=== PATIENT | female | born 1965 | race Caucasian/White ===

== ENCOUNTER 2018-02-03 13:04 | Inpatient (IN) ==
[2018-02-03 13:35] LABS: Basophils % 0.2 % (0.0-0.8); Eosinophils # 0.1 10*3/uL (0.0-0.87); Eosinophils % 1.4 % (0.00-10.9); Hematocrit 39.7 VOL% (35.7-47.0); Hemoglobin 13.5 GM/DL (12.0-16.0); Immature Granulocytes % 0.2 %; Immature Granulocytes Absolute 0.02 #; Lymphocytes # 2.1 10*3/uL (1.4-4.0); Lymphocytes % 24.4 % (21.3-54.2); Mean Corpuscular Hemoglobin 30 PG (27-34); Mean Corpuscular Volume 87.3 FL (87-102); Mean Platelet Volume 10.8 FL (9.6-12.0); Monocytes # 0.6 10*3/uL (0.11-0.8); Monocytes % 6.7 % (1.7-12.7); Neutrophils # 5.7 10*3/uL (1.4-7.4); Neutrophils % 67.1 % (38.7-73.9); Platelet Count 316 T/CUMM (130-400); Red Blood Count 4.55 MC/CUMM (3.8-5.5); Red Cell Distribution Width 12.5 % (9.3-17.3); White Blood Count 8.5 T/CUMM (4-12)
[2018-02-03 13:59] LABS: Alanine Aminotransferase 18 U/L (13-56); Albumin 4.2 G/DL (3.4-5.0); Alkaline Phosphatase 83 U/L (45-117); Aspartate Amino Transferase 17 U/L (0-37); Bilirubin,Total < 0.39 MG/DL (0.2-1.0); Blood Urea Nitrogen 9 MG/DL (7-18); Calcium 8.9 MG/DL (8.5-10.1); Glucose 86 MG/DL (74-106); Osmolality,Calculated 272.7 MOS/KG (273-304); Sodium 138 MMOL/L (136-145); Total Protein 7.3 G/DL (6.4-8.3)
[2018-02-03] MEDS ORDERED: DILTIAZEM 50 MG/10 ML VIAL IV STA (15:16)
[2018-02-03 15:41] LABS: Free T4 (Free Thyroxine) 0.77 NG/DL (0.76-1.46); Thyroid Stimulating Hormone 4.74 uIU/ml (0.358-3.74)
[2018-02-03] MEDS ORDERED: guaiFENesin/DM ER 600-30 MG TABLET PO PRN (16:13)
[2018-02-03] MEDS ORDERED: diphenhydrAMINE CAP 25 MG CAPSULE PO PRN (16:13)
[2018-02-03] MEDS ORDERED: POTASSIUM CHLORIDE 20 MEQ TABLET PO PRN (16:13)
[2018-02-03] MEDS ORDERED: BISACODYL 5 MG TABLET PO PRN (16:13)
[2018-02-03] MEDS ORDERED: ONDANSETRON 4 MG/2 ML VIAL IV PRN (16:13)
[2018-02-03] MEDS ORDERED: DOCUSATE SODIUM 100 MG CAPSULE PO PRN (16:13)
[2018-02-03] MEDS ORDERED: MAGNESIUM SULF RIDER 2 GM in PREMIX 1 EACH IV PRN (16:13)
[2018-02-03] MEDS ORDERED: MAGNESIUM SULF RIDER 4 GM in PREMIX 1 EACH IV PRN (16:13)
[2018-02-03] MEDS ORDERED: ACETAMINOPHEN 325 MG TABLET PO PRN (16:13)
[2018-02-03] MEDS ORDERED: KETOROLAC 30 MG/1 ML VIAL IV ONE (17:46)
[2018-02-03] MEDS ORDERED: PROMETHAZINE 25 MG/1 ML VIAL IM ONE (17:46)
[2018-02-03] MEDS: ENOXAPARIN 40 MG/0.4 ML SYRINGE SUBCUT SCH (19:30)
[2018-02-03 21:16] LABS: Troponin I < 0.015 NG/ML (0.00-0.045)
[2018-02-03] MEDS ORDERED: SODIUM CHLORIDE 0.9% 500 ML IV ONE (22:56)
[2018-02-03] MEDS ORDERED: KETOROLAC 30 MG/1 ML VIAL IV PRN (23:00)
[2018-02-03] MEDS: METOPROLOL TARTRATE 25 MG TABLET PO SCH (23:42)
[2018-02-03 23:53] LABS: Troponin I < 0.015 NG/ML (0.00-0.045)
[2018-02-04] MEDS: THYROID 60 MG TABLET PO SCH ×2 (00:29→21:45)
[2018-02-04] MEDS: SULFAMETHOX/TRIMETHOPRIM 800-160 MG TABLET PO SCH ×3 (00:30→21:45)
[2018-02-04] MEDS: MORPHINE ER 15 MG TABLET PO SCH ×3 (00:32→21:45)
[2018-02-04] MEDS: traZODone 50 MG TABLET PO SCH ×2 (00:33→21:45)
[2018-02-04 05:34] LABS: Basophils % 0.3 % (0.0-0.8); Eosinophils # 0.1 10*3/uL (0.0-0.87); Eosinophils % 1.9 % (0.00-10.9); Hematocrit 31.6 VOL% (35.7-47.0); Hemoglobin 10.5 GM/DL (12.0-16.0); Immature Granulocytes % 0.3 %; Immature Granulocytes Absolute 0.02 #; Lymphocytes # 1.3 10*3/uL (1.4-4.0); Mean Corpuscular HGB Conc 33.2 GM/DL (32-36); Mean Corpuscular Hemoglobin 29 PG (27-34); Mean Corpuscular Volume 88.5 FL (87-102); Mean Platelet Volume 11.1 FL (9.6-12.0); Monocytes # 0.5 10*3/uL (0.11-0.8); Monocytes % 7.8 % (1.7-12.7); Neutrophils # 4.5 10*3/uL (1.4-7.4); Neutrophils % 69.7 % (38.7-73.9); Platelet Count 226 T/CUMM (130-400); Red Blood Count 3.57 MC/CUMM (3.8-5.5); Red Cell Distribution Width 12.7 % (9.3-17.3); White Blood Count 6.5 T/CUMM (4-12)
[2018-02-04 05:55] LABS: Calcium 7.9 MG/DL (8.5-10.1); Osmolality,Calculated 274.5 MOS/KG (273-304); Risk Ratio 2.73; VLDL CHOLESTEROL 9.2 MG/DL
[2018-02-04] MEDS ORDERED: NON-FORMULARY MEDICATION (Hydrocodone/Ibuprofen [Hydrocodone-Ibuprofen 7.5-200] 1 EACH) PO PRN (09:00)
[2018-02-04] MEDS: METOPROLOL TARTRATE 25 MG TABLET PO SCH (10:04)
[2018-02-04] MEDS: PANTOPRAZOLE 40 MG TABLET PO SCH (10:05)
[2018-02-04] MEDS: DULoxetine 30 MG CAPSULE PO SCH (10:05)
[2018-02-04] MEDS: TOPIRAMATE 100 MG TABLET PO SCH (10:06)
[2018-02-04] MEDS: ASCORBIC ACID 500 MG TABLET PO SCH (10:06)
[2018-02-04] MEDS: CALCIUM (CARBONATE)/VITAMIN D 600 MG-400 UNIT TABLET PO SCH (10:06)
[2018-02-04 11:37] LABS: Apearance,Urine CLEAR (Clear); Bilirubin,Urine Negative (Negative); Blood, Urine Negative (Negative); Glucose,Urine (UA) Negative (Negative); Ketones,Urine 80 mg/dL (Negative); Mucus,Urine Occasional /LPF (Occasional); Nitrite,Urine Negative (Negative); Protein,Urine Negative; Squamous Epithelial Cell,Urine Occasional /HPF (0-10); Urine Color Straw (Yellow); Urine Specific Gravity 1.029 (1.001-1.035); Urine Urobilinogen < 2.0 EU/DL (0.2-1.0)
[2018-02-04] MEDS: MONTELUKAST 10 MG TABLET PO SCH (14:27)
[2018-02-04] MEDS: ENOXAPARIN 40 MG/0.4 ML SYRINGE SUBCUT SCH (16:11)
[2018-02-04] MEDS ORDERED: oxyCODONE/ACETAMINOPHEN 5-325 MG TABLET PO PRN (17:22)
[2018-02-04] MEDS ORDERED: PROPRANOLOL 10 MG TABLET PO SCH (21:00)
[2018-02-04] MEDS ORDERED: SODIUM CHLORIDE 0.9% 500 ML IV ONE (23:54)
[2018-02-05] MEDS: SODIUM CHLORIDE 0.45% 1,000 ML IV SCH ×6 (01:08→20:47)
[2018-02-05 01:17] LABS: Barbiturates Screen,Urine Negative (Negative); Benzodiazepines Screen,Urine Negative (Negative); Cannabinoid Screen,Urine Negative (Negative); Opiate Screen,Urine Positive (Negative); Phencyclidine Screen,Urine Negative (Negative)
[2018-02-05] MEDS ORDERED: SODIUM CHLORIDE 0.9% 500 ML IV ONE ×4 (01:18→13:11)
[2018-02-05 04:37] LABS: Basophils % 0.2 % (0.0-0.8); Eosinophils # 0.1 10*3/uL (0.0-0.87); Eosinophils % 2.9 % (0.00-10.9); Hematocrit 27.2 VOL% (35.7-47.0); Immature Granulocytes % 0.2 %; Immature Granulocytes Absolute 0.01 #; Lymphocytes # 1.6 10*3/uL (1.4-4.0); Lymphocytes % 38.7 % (21.3-54.2); Mean Corpuscular HGB Conc 33.1 GM/DL (32-36); Mean Corpuscular Hemoglobin 29 PG (27-34); Mean Corpuscular Volume 87.7 FL (87-102); Mean Platelet Volume 11.3 FL (9.6-12.0); Monocytes # 0.4 10*3/uL (0.11-0.8); Monocytes % 9.3 % (1.7-12.7); Neutrophils # 2.1 10*3/uL (1.4-7.4); Neutrophils % 48.7 % (38.7-73.9); Platelet Count 178 T/CUMM (130-400); Red Cell Distribution Width 13.2 % (9.3-17.3); White Blood Count 4.2 T/CUMM (4-12)
[2018-02-05 05:06] LABS: Calcium 7.6 MG/DL (8.5-10.1); Osmolality,Calculated 277.3 MOS/KG (273-304); Potassium 3.5 MMOL/L (3.5-5.1)
[2018-02-05 05:06] LABS: Calcium 7.6 MG/DL (8.5-10.1); Osmolality,Calculated 275.4 MOS/KG (273-304); Potassium 3.5 MMOL/L (3.5-5.1)
[2018-02-05] MEDS: DULoxetine 30 MG CAPSULE PO SCH (09:14)
[2018-02-05] MEDS: ASCORBIC ACID 500 MG TABLET PO SCH (09:14)
[2018-02-05] MEDS: CALCIUM (CARBONATE)/VITAMIN D 600 MG-400 UNIT TABLET PO SCH (09:15)
[2018-02-05] MEDS: TOPIRAMATE 100 MG TABLET PO SCH (09:15)
[2018-02-05] MEDS: PANTOPRAZOLE 40 MG TABLET PO SCH (09:15)
[2018-02-05] MEDS: SULFAMETHOX/TRIMETHOPRIM 800-160 MG TABLET PO SCH ×2 (09:15→20:45)
[2018-02-05] MEDS: MONTELUKAST 10 MG TABLET PO SCH (09:15)
[2018-02-05] MEDS: ENOXAPARIN 40 MG/0.4 ML SYRINGE SUBCUT SCH (16:50)
[2018-02-05] MEDS: THYROID 60 MG TABLET PO SCH (20:44)
[2018-02-05] MEDS: oxyCODONE/ACETAMINOPHEN 5-325 MG TABLET PO PRN (20:45)
[2018-02-05] MEDS: traZODone 50 MG TABLET PO SCH (20:46)
[2018-02-06] MEDS: SODIUM CHLORIDE 0.45% 1,000 ML IV SCH (03:28)
[2018-02-06 04:34] LABS: Basophils % 0.4 % (0.0-0.8); Eosinophils # 0.1 10*3/uL (0.0-0.87); Eosinophils % 2.4 % (0.00-10.9); Hematocrit 27.2 VOL% (35.7-47.0); Hemoglobin 9.2 GM/DL (12.0-16.0); Immature Granulocytes % 0.2 %; Immature Granulocytes Absolute 0.01 #; Lymphocytes # 1.4 10*3/uL (1.4-4.0); Lymphocytes % 26.7 % (21.3-54.2); Mean Corpuscular HGB Conc 33.8 GM/DL (32-36); Mean Corpuscular Hemoglobin 30 PG (27-34); Mean Platelet Volume 11.6 FL (9.6-12.0); Monocytes # 0.4 10*3/uL (0.11-0.8); Monocytes % 7.1 % (1.7-12.7); NRBC # 0.02 10*3/uL; Neutrophils # 3.2 10*3/uL (1.4-7.4); Neutrophils % 63.2 % (38.7-73.9); Platelet Count 171 T/CUMM (130-400); Red Blood Count 3.09 MC/CUMM (3.8-5.5); Red Cell Distribution Width 13.5 % (9.3-17.3); White Blood Count 5.1 T/CUMM (4-12)
[2018-02-06 04:52] LABS: Calcium 7.7 MG/DL (8.5-10.1); Osmolality,Calculated 280.1 MOS/KG (273-304); Potassium 3.4 MMOL/L (3.5-5.1)
[2018-02-06] MEDS: oxyCODONE/ACETAMINOPHEN 5-325 MG TABLET PO PRN (05:09)
[2018-02-06 07:46] VITALS: BP 103/58
[2018-02-06] MEDS: SULFAMETHOX/TRIMETHOPRIM 800-160 MG TABLET PO SCH (09:12)
[2018-02-06] MEDS: CALCIUM (CARBONATE)/VITAMIN D 600 MG-400 UNIT TABLET PO SCH (09:12)
[2018-02-06] MEDS: DULoxetine 30 MG CAPSULE PO SCH (09:13)
[2018-02-06] MEDS: PANTOPRAZOLE 40 MG TABLET PO SCH (09:13)
[2018-02-06] MEDS: MONTELUKAST 10 MG TABLET PO SCH (09:13)
[2018-02-06] MEDS: ASCORBIC ACID 500 MG TABLET PO SCH (09:14)
[2018-02-06] MEDS ORDERED: MORPHINE ER 15 MG TABLET PO SCH (09:36)
[2018-02-06] MEDS: TOPIRAMATE 100 MG TABLET PO SCH (10:12)
[2018-02-10 22:51] LABS: Normetanephrine, U 122 mcg/24 h; Total Metanephrines, U 169 mcg/24 h; Urine Volume 3950 mL
== END 2018-02-06 10:55 | disposition home or self-care (01) | DRG 310 ==
LOC: N.ED 13:04 → N.EDINP 13:04 → N.TELES 22:00
PROVIDERS: ADMIT Internal Medicine Interventional Cardiology; ATTEND Internal Medicine Interventional Cardiology

== ENCOUNTER 2018-09-16 00:44 | Inpatient (IN) ==
[2018-09-16] MEDS ORDERED: SODIUM CHLORIDE 0.9% 500 ML IV STA (01:26)
[2018-09-16] MEDS ORDERED: LORazepam 2 MG/1 ML VIAL IV STA (01:26)
[2018-09-16 01:33] LABS: Basophils % 0.3 % (0.0-0.8); Eosinophils # 0.1 10*3/uL (0.0-0.87); Eosinophils % 0.9 % (0.00-10.9); Hematocrit 36.6 VOL% (35.7-47.0); Hemoglobin 11.8 GM/DL (12.0-16.0); Immature Granulocytes % 0.6 %; Immature Granulocytes Absolute 0.08 #; Lymphocytes % 15.2 % (21.3-54.2); Mean Corpuscular HGB Conc 32.2 GM/DL (32-36); Mean Corpuscular Hemoglobin 29 PG (27-34); Mean Corpuscular Volume 88.8 FL (87-102); Mean Platelet Volume 10.8 FL (9.6-12.0); Monocytes % 7.4 % (1.7-12.7); Neutrophils # 9.9 10*3/uL (1.4-7.4); Neutrophils % 75.6 % (38.7-73.9); Platelet Count 292 T/CUMM (130-400); Red Blood Count 4.12 MC/CUMM (3.8-5.5); Red Cell Distribution Width 12.4 % (9.3-17.3); White Blood Count 13.1 T/CUMM (4-12)
[2018-09-16 01:45] LABS: INR 0.9; PT Patient Result 10.2 SECS
[2018-09-16 01:58] LABS: Alanine Aminotransferase 18 U/L (13-56); Albumin 4.1 G/DL (3.4-5.0); Alkaline Phosphatase 100 U/L (45-117); Aspartate Amino Transferase 20 U/L (0-37); Blood Urea Nitrogen 12 MG/DL (7-18); Calcium 8.8 MG/DL (8.5-10.1); Glucose 100 MG/DL (74-106); Osmolality,Calculated 280.3 MOS/KG (273-304); Potassium 3.6 MMOL/L (3.5-5.1); Sodium 141 MMOL/L (136-145); Total Protein 7.2 G/DL (6.4-8.3); Troponin I 0.016 NG/ML (0.00-0.045)
[2018-09-16] MEDS ORDERED: SODIUM CHLORIDE 0.9% 1,750 ML IV ONE (02:08)
[2018-09-16 02:20] LABS: Apearance,Urine CLEAR (Clear); Blood, Urine Negative (Negative); Glucose,Urine (UA) Negative (Negative); Hyaline Casts,Urine 4 /LPF (0-3); Ketones,Urine 5 mg/dL (Negative); Mucus,Urine Occasional /LPF (Occasional); Nitrite,Urine Negative (Negative); Protein,Urine Negative; RBC,Urine 2 /HPF (0-4); Squamous Epithelial Cell,Urine Occasional /HPF (0-10); Urine Color Amber (Yellow); Urine Specific Gravity 1.038 (1.001-1.035); Urine Urobilinogen < 2.0 EU/DL (0.2-1.0); WBC,Urine 1 /HPF (0-6)
[2018-09-16 02:22] LABS: Bilirubin,Urine Moderate mg/dL (Negative)
[2018-09-16 02:25] LABS: INR 0.9; PT Patient Result 10.1 SECS; Partial Thromboplastin Time 23.1 SECS (0-40)
[2018-09-16] MEDS ORDERED: SODIUM CHLORIDE 0.9% 1,000 ML IV SCH (02:30)
[2018-09-16 02:31] LABS: Barbiturates Screen,Urine Negative (Negative); Benzodiazepines Screen,Urine Negative (Negative); Cannabinoid Screen,Urine Negative (Negative); Opiate Screen,Urine Positive (Negative); Phencyclidine Screen,Urine Negative (Negative)
[2018-09-16] MEDS ORDERED: PIPERACILLIN/TAZOBACTAM 3,375 MG VIAL IV ONE (03:14)
[2018-09-16] MEDS ORDERED: SODIUM CHLORIDE 0.9% 100 ML IV ONE (03:14)
[2018-09-16] MEDS: PIPERACILLIN/TAZOBACTAM 3,375 MG in SODIUM CHLORIDE 0.9% 100 ML IV SCH ×3 (03:25→19:38)
[2018-09-16 03:37] LABS: ABG Base Excess -7.3 MMOL/L (-2.5-2.5); ABG HCO3 18.5 MMOL/L (20-26); ABG Oxygen Saturation 97.6 % (95-100); ABG PCO2 33.3 MM HG (35-48); ABG PH 7.334 (7.35-7.45); ABG PO2 99.8 MM HG (80-95); ABG TCO2 16.2 MMOL/L (23-27); Allen Test Positive; Pt O2 Delivery Device Room Air
[2018-09-16] MEDS ORDERED: ONDANSETRON 4 MG/2 ML VIAL IV PRN (04:56)
[2018-09-16 05:33] LABS: Basophils % 0.2 % (0.0-0.8); Eosinophils % 0.4 % (0.00-10.9); Hematocrit 29.1 VOL% (35.7-47.0); Hemoglobin 9.2 GM/DL (12.0-16.0); Immature Granulocytes % 0.4 %; Immature Granulocytes Absolute 0.03 #; Lymphocytes # 1.5 10*3/uL (1.4-4.0); Lymphocytes % 17.3 % (21.3-54.2); Mean Corpuscular HGB Conc 31.6 GM/DL (32-36); Mean Corpuscular Hemoglobin 29 PG (27-34); Mean Corpuscular Volume 91.2 FL (87-102); Monocytes # 0.6 10*3/uL (0.11-0.8); Monocytes % 7.6 % (1.7-12.7); Neutrophils # 6.2 10*3/uL (1.4-7.4); Neutrophils % 74.1 % (38.7-73.9); Platelet Count 215 T/CUMM (130-400); Red Blood Count 3.19 MC/CUMM (3.8-5.5); Red Cell Distribution Width 12.4 % (9.3-17.3); White Blood Count 8.4 T/CUMM (4-12)
[2018-09-16 05:33] LABS: Sedimentation Rate-Westergren 15 MM/HR (0-30)
[2018-09-16 05:59] LABS: Bilirubin,Total 0.7 MG/DL (0.2-1.0); Calcium 7.1 MG/DL (8.5-10.1); Osmolality,Calculated 286.7 MOS/KG (273-304); Potassium 4.1 MMOL/L (3.5-5.1); Total Protein 5.2 G/DL (6.4-8.3)
[2018-09-16 06:03] LABS: Acetaminophen 24.2 UG/ML (10-30); Salicylate < 2.8 MG/DL (2.8-20)
[2018-09-16] MEDS: SODIUM CHLORIDE 0.9% 1,000 ML IV SCH ×3 (06:29→23:53)
[2018-09-16 07:33] LABS: Troponin I 0.042 NG/ML (0.00-0.045)
[2018-09-16] MEDS: ENOXAPARIN 40 MG/0.4 ML SYRINGE SUBCUT SCH (09:09)
[2018-09-16 14:00] LABS: Troponin I 0.032 NG/ML (0.00-0.045)
[2018-09-17] MEDS: SODIUM CHLORIDE 0.9% 1,000 ML IV SCH ×2 (02:07→12:37)
[2018-09-17] MEDS: PIPERACILLIN/TAZOBACTAM 3,375 MG in SODIUM CHLORIDE 0.9% 100 ML IV SCH ×3 (05:49→21:43)
[2018-09-17 06:11] LABS: Basophils % 0.4 % (0.0-0.8); Eosinophils # 0.2 10*3/uL (0.0-0.87); Eosinophils % 3.6 % (0.00-10.9); Hematocrit 30.7 VOL% (35.7-47.0); Hemoglobin 9.7 GM/DL (12.0-16.0); Immature Granulocytes % 0.4 %; Immature Granulocytes Absolute 0.02 #; Lymphocytes # 1.9 10*3/uL (1.4-4.0); Mean Corpuscular HGB Conc 31.6 GM/DL (32-36); Mean Corpuscular Hemoglobin 29 PG (27-34); Mean Corpuscular Volume 90.3 FL (87-102); Mean Platelet Volume 10.9 FL (9.6-12.0); Monocytes # 0.4 10*3/uL (0.11-0.8); Monocytes % 7.2 % (1.7-12.7); Neutrophils # 2.5 10*3/uL (1.4-7.4); Neutrophils % 50.4 % (38.7-73.9); Platelet Count 195 T/CUMM (130-400); Red Cell Distribution Width 12.7 % (9.3-17.3)
[2018-09-17 06:26] LABS: PT Patient Result 10.8 SECS
[2018-09-17 06:32] LABS: Albumin 2.7 G/DL (3.4-5.0); Bilirubin,Total 0.7 MG/DL (0.2-1.0); Calcium 7.5 MG/DL (8.5-10.1); Osmolality,Calculated 278.1 MOS/KG (273-304); Potassium 3.5 MMOL/L (3.5-5.1); Troponin I 0.025 NG/ML (0.00-0.045)
[2018-09-17] MEDS: ENOXAPARIN 40 MG/0.4 ML SYRINGE SUBCUT SCH (08:26)
[2018-09-17] MEDS ORDERED: ASCORBIC ACID 500 MG TABLET PO SCH (16:52)
[2018-09-17] MEDS ORDERED: GABAPENTIN 100 MG CAPSULE PO SCH (16:52)
[2018-09-17] MEDS ORDERED: MONTELUKAST 10 MG TABLET PO SCH (16:52)
[2018-09-17] MEDS ORDERED: THYROID PORK PO SCH (16:52)
[2018-09-17] MEDS ORDERED: DULoxetine 30 MG CAPSULE PO SCH (16:52)
[2018-09-17] MEDS ORDERED: CALCIUM (CARBONATE)/VITAMIN D 600 MG-400 UNIT TABLET PO SCH (16:52)
[2018-09-17] MEDS: DULoxetine 30 MG CAPSULE PO SCH (18:25)
[2018-09-17] MEDS: GABAPENTIN 100 MG CAPSULE PO SCH (21:42)
[2018-09-18] MEDS: SODIUM CHLORIDE 0.9% 1,000 ML IV SCH (01:37)
[2018-09-18 05:25] LABS: Calcium 7.3 MG/DL (8.5-10.1); Potassium 3.4 MMOL/L (3.5-5.1)
[2018-09-18] MEDS: PIPERACILLIN/TAZOBACTAM 3,375 MG in SODIUM CHLORIDE 0.9% 100 ML IV SCH (06:29)
[2018-09-18] MEDS ORDERED: THYROID PORK PO SCH (06:30)
[2018-09-18] MEDS ORDERED: POTASSIUM CHLORIDE 20 MEQ TABLET PO PRN (07:59)
[2018-09-18 08:06] VITALS: BP 137/83
[2018-09-18] MEDS: DULoxetine 30 MG CAPSULE PO SCH (08:57)
[2018-09-18] MEDS: GABAPENTIN 100 MG CAPSULE PO SCH (08:58)
[2018-09-18] MEDS: ENOXAPARIN 40 MG/0.4 ML SYRINGE SUBCUT SCH (08:58)
[2018-09-18] MEDS ORDERED: MONTELUKAST 10 MG TABLET PO SCH (09:00)
[2018-09-18] MEDS ORDERED: DULoxetine 30 MG CAPSULE PO SCH (09:00)
[2018-09-18] MEDS ORDERED: CALCIUM (CARBONATE)/VITAMIN D 600 MG-400 UNIT TABLET PO SCH (09:00)
[2018-09-18] MEDS ORDERED: ASCORBIC ACID 500 MG TABLET PO SCH (09:00)
== END 2018-09-18 12:15 | disposition home or self-care (01) | DRG 896 ==
LOC: EDUNIT# → EDBD → N.ED 00:44 → SUATTDRO 04:56 → N.EDINP 04:56 → N.CC 15:35 → N.4E 09-17 16:42
PROVIDERS: ADMIT Internal Medicine; ATTEND Internal Medicine